=== PATIENT | male | born 1985 | race Hispanic/Latino ===

== ENCOUNTER 2016-12-11 21:34 | Emergency (ER) | payer OTHER ==
[~2016-12-11] VITALS: Ht 172.7 cm; Wt 70.2 kg
[~2016-12-11 21:34] MED LIST: ACYCLOVIR400 MG PO; BACTRIM DS1 TAB PO; HYDROXYZ HCL25 MG PO; NO HOME MEDS; ULTRAM50 MG OR
[2016-12-11 23:14] VITALS: BP 127/73
== END 2016-12-11 23:15 | disposition home or self-care (01) | DRG 607 ==
LOC: ED 21:34
DX: L50.9 Urticaria, unspecified (principal); L73.9 Follicular disorder, unspecified

== ENCOUNTER 2016-12-14 20:36 | Emergency (ER) | payer OTHER ==
[~2016-12-14] VITALS: Ht 172.7 cm; Wt 70.0 kg
[2016-12-14] MEDS ORDERED: AMOXICILLIN500 MG PO (23:23)
[2016-12-14 23:30] VITALS: BP 132/86
== END 2016-12-14 23:30 | disposition home or self-care (01) | DRG 153 ==
LOC: ED 20:36
DX: J02.9 Acute pharyngitis, unspecified (principal)

== ENCOUNTER 2017-03-24 16:35 | Emergency (ER) | payer SELFPAY ==
[~2017-03-24] VITALS: Ht 172.7 cm; Wt 75.0 kg
[~2017-03-24 16:35] MED LIST changes: +AMOXICILLIN500 MG PO
[2017-03-24 17:42] LABS: HEMATOCRIT 44.7 % (39.0-50.0); HEMOGLOBIN 15.2 g/dl (14.0-18.0); IMMATURE GRANULOCYTES 0.4 % (0.0-1.0); MEAN CORPUSCULAR HGB 29.2 pG CALC (26.0-32.0); NEUT# 7.3 thou/uL (1.82-7.42); RED BLOOD COUNT 5.2 mill/uL (4.70-6.10); RED CELL DISTRI WIDTH 13.4 % (11.5-15.5)
[2017-03-24 18:05] LABS: INFLUENZA A NONE DETECTED (NONE DETECT); INFLUENZA B NONE DETECTED (NONE DETECT)
[2017-03-24 18:15] LABS: ANION GAP 17 (6-22 (CALC)); BUN 13 mg/dL (9-20); BUN/CREATININE RATIO 15 (12-20 (CALC)); CALCIUM 10.6 mg/dL (8.4-10.2); CARBON DIOXIDE 23 mmol/l (22-30); CHLORIDE 104 mmol/l (95-108); CREATININE 0.9 mg/dL (0.7-1.3); GFR > 60 ML/MIN (>=60 (CALC)); GFR FOR AFR.AMER. > 60 ML/MIN (>=60 (CALC)); GLUCOSE 97 mg/dL (75-110); LIPASE 73 u/l (23-300); POTASSIUM 3.9 mmol/l (3.5-5.1); SODIUM 140 mmol/l (137-146)
[2017-03-24] MEDS ORDERED: ZOFRAN4 M1 PO (18:22)
[2017-03-24 18:30] VITALS: BP 120/74
== END 2017-03-24 18:35 | disposition home or self-care (01) | DRG 103 ==
LOC: ED 16:35
PROVIDERS: Family Medicine
DX: R51 Headache (principal); R10.11 Right upper quadrant pain; R10.13 Epigastric pain; R10.12 Left upper quadrant pain

== ENCOUNTER 2017-04-23 08:34 | Emergency (ER) | payer SELFPAY ==
[~2017-04-23] VITALS: Ht 172.7 cm; Wt 75.0 kg
[~2017-04-23 08:34] MED LIST changes: +ZOFRAN4 M1 PO
[2017-04-23 09:03] LABS: INFLUENZA A NONE DETECTED (NONE DETECT); INFLUENZA B POSITIVE (NONE DETECT)
[2017-04-23] MEDS ORDERED: TAM75CAP PO (09:11)
[2017-04-23] MEDS ORDERED: TORADOL PO (09:11)
[2017-04-23 09:29] VITALS: BP 125/77
== END 2017-04-23 09:29 | disposition home or self-care (01) | DRG 153 ==
LOC: ED 08:34
PROVIDERS: Emergency Medicine
DX: J11.1 Influenza due to unidentified influenza virus with other respiratory manifestations (principal)

== ENCOUNTER 2017-08-13 23:45 | Emergency (ER) | payer SELFPAY ==
[~2017-08-13] VITALS: Ht 172.7 cm; Wt 76.6 kg
[~2017-08-13 23:45] MED LIST changes: +TAM75CAP PO; +TORADOL PO
[2017-08-14 01:08] VITALS: BP 128/86
== END 2017-08-14 01:08 | disposition home or self-care (01) | DRG 866 ==
LOC: ED 23:45
DX: B34.9 Viral infection, unspecified (principal)

== ENCOUNTER 2018-03-08 11:10 | Emergency (ER) | payer OTHER ==
[~2018-03-08] VITALS: Ht 172.7 cm; Wt 74.4 kg
[2018-03-08] MEDS ORDERED: AUGMENTIN875TAB PO (12:10)
[2018-03-08 12:15] VITALS: BP 136/90
== END 2018-03-08 12:15 | disposition home or self-care (01) ==
LOC: ED 11:10
DX: J02.0 Streptococcal pharyngitis (principal); H92.03 Otalgia, bilateral

== ENCOUNTER 2018-05-12 23:09 | Emergency (ER) | payer OTHER ==
[~2018-05-12] VITALS: Ht 172.7 cm; Wt 72.0 kg
[~2018-05-12 23:09] MED LIST changes: +AUGMENTIN875TAB PO
[2018-05-13 00:04] LABS: HEMATOCRIT 48.6 % (39.0-50.0); HEMOGLOBIN 15.7 g/dl (14.0-18.0); IMMATURE GRANULOCYTES 0.3 % (0.0-5.0); MEAN CELL VOLUME 87.6 fL CALC (80.0-100.0); MEAN CORPUSCULAR HGB 28.3 pG CALC (26.0-32.0); MEAN CORPUSCULAR HGB CONC 32.3 g/L CALC (32.0-36.0); NEUT# 10.43 thou/uL (1.82-7.42); RED BLOOD COUNT 5.55 mill/uL (4.70-6.10); RED CELL DISTRI WIDTH 13.5 % (11.5-15.5)
[2018-05-13 00:06] LABS: URINE BILIRUBIN - DIPSTICK NEGATIVE (NEGATIVE); URINE BLOOD DIPSTICK NEGATIVE (NEGATIVE); URINE COLOR YELLOW; URINE GLUCOSE - DIPSTICK NEGATIVE (NEGATIVE); URINE KETONE TRACE mg/dL (NEGATIVE); URINE LEUK ESTERASE NEGATIVE (NEGATIVE); URINE NITRITE - DIPSTICK NEGATIVE (Negative); URINE PH 6.5 (4.5-8.0); URINE PROTEIN - DIPSTICK NEGATIVE (NEG-TRACE)
[2018-05-13 00:18] LABS: ALBUMIN 4.8 g/dL (3.2-5.0); ALKALINE PHOSPHATASE 78 u/l (38-126); AMYLASE 67 u/l (30-110); ANION GAP 15 (6-22 (CALC)); BUN 16 mg/dL (9-20); BUN/CREATININE RATIO 17 (12-20 (CALC)); CARBON DIOXIDE 25 mmol/l (22-30); CHLORIDE 106 mmol/l (95-108); GFR > 60 ML/MIN (>=60 (CALC)); GFR FOR AFR.AMER. > 60 ML/MIN (>=60 (CALC)); LIPASE 142 u/l (23-300); POTASSIUM 3.8 mmol/l (3.5-5.1); SGOT/AST 31 u/l (17-59); SODIUM 142 mmol/l (137-146); TOTAL PROTEIN 8.4 g/dL (6.3-8.2)
[2018-05-13] MEDS ORDERED: PROTONIX40 MG PO (01:47)
[2018-05-13 03:08] VITALS: BP 108/77
== END 2018-05-13 03:21 | disposition home or self-care (01) ==
LOC: ED 23:09
PROVIDERS: Emergency Medicine
DX: R10.13 Epigastric pain (principal)
CPT/HCPCS: Q9967; S0164

== ENCOUNTER 2018-07-08 19:29 | Emergency (ER) | payer OTHER ==
[~2018-07-08] VITALS: Ht 172.7 cm; Wt 71.0 kg
[~2018-07-08 19:29] MED LIST changes: +PROTONIX40 MG PO
[2018-07-08] MEDS ORDERED: AUGMENTIN875TAB PO (19:48)
[2018-07-08] MEDS ORDERED: PREDNISONE20 MG PO (19:53)
[2018-07-08 20:09] VITALS: BP 121/67
== END 2018-07-08 20:09 | disposition home or self-care (01) ==
LOC: ED 19:29
DX: J32.9 Chronic sinusitis, unspecified (principal); R09.81 Nasal congestion

== ENCOUNTER 2018-07-23 20:49 | Emergency (ER) | payer SELFPAY ==
[~2018-07-23] VITALS: Ht 172.7 cm; Wt 80.0 kg
[~2018-07-23 20:49] MED LIST changes: +PREDNISONE20 MG PO
[2018-07-23] MEDS ORDERED: CEPHALEXIN500 M1 PO (21:56)
[2018-07-23 22:30] VITALS: BP 142/72
== END 2018-07-23 22:31 | disposition home or self-care (01) | DRG 605 ==
LOC: ED 20:49
DX: S61.231A Puncture wound without foreign body of left index finger without damage to nail, initial encounter (principal); W60.XXXA Contact with nonvenomous plant thorns and spines and sharp leaves, initial encounter; Y93.H2 Activity, gardening and landscaping; Y99.0 Civilian activity done for income or pay

== ENCOUNTER 2019-03-20 | Emergency (ER) | payer MEDICAID ==
[~2019-03-20] MED LIST changes: +CEPHALEXIN500 M1 PO; +TRAMADOL HYDROC50 MG PO
[2019-03-20 21:10] LABS: HEMATOCRIT 41.4 % (39.0-50.0); HEMOGLOBIN 14.1 g/dl (14.0-18.0); IMMATURE GRANULOCYTES 0.4 % (0.0-5.0); MEAN CELL VOLUME 84.1 fL CALC (80.0-100.0); MEAN CORPUSCULAR HGB 28.7 pG CALC (26.0-32.0); MEAN CORPUSCULAR HGB CONC 34.1 g/L CALC (32.0-36.0); NEUT# 9.37 thou/uL (1.82-7.42); RED BLOOD COUNT 4.92 mill/uL (4.70-6.10); RED CELL DISTRI WIDTH 13.1 % (11.5-15.5)
[2019-03-20] MEDS ORDERED: CLARITHROMYC500 MG PO (21:39)
== END 2019-03-20 22:00 | disposition home or self-care (01) | DRG 203 ==
PROVIDERS: Family Medicine
DX: J40 Bronchitis, not specified as acute or chronic (principal)

== ENCOUNTER 2019-08-02 13:24 | Emergency (ER) | payer MEDICAID ==
[~2019-08-02 13:24] MED LIST changes: +CLARITHROMYC500 MG PO
[2019-08-02] MEDS ORDERED: AMOXICILLIN500 MG PO (15:27)
[2019-08-02 15:30] VITALS: BP 126/76
== END 2019-08-02 15:30 | disposition home or self-care (01) | DRG 153 ==
LOC: ED 13:24
DX: J02.9 Acute pharyngitis, unspecified (principal); Z20.828 Contact with and (suspected) exposure to other viral communicable diseases

== ENCOUNTER 2019-09-08 19:55 | Emergency (ER) | payer MEDICAID ==
[~2019-09-08] VITALS: Ht 172.7 cm; Wt 72.0 kg
[2019-09-08 20:09] VITALS: BP 144/91
== END 2019-09-08 21:49 | disposition home or self-care (01) ==
LOC: ED 19:55
DX: R52 Pain, unspecified (principal); R05 Cough; Z20.828 Contact with and (suspected) exposure to other viral communicable diseases

== ENCOUNTER 2019-12-12 21:28 | Emergency (ER) | payer MEDICAID ==
[~2019-12-12] VITALS: Ht 172.7 cm; Wt 78.0 kg
[2019-12-12 21:49] LABS: HEMATOCRIT 38.9 % (39.0-50.0); HEMOGLOBIN 13.1 g/dl (14.0-18.0); IMMATURE GRANULOCYTES 1.1 % (0.0-5.0); MEAN CELL VOLUME 84.9 fL CALC (80.0-100.0); MEAN CORPUSCULAR HGB 28.6 pG CALC (26.0-32.0); MEAN CORPUSCULAR HGB CONC 33.7 g/dL CAL (32.0-36.0); RED BLOOD COUNT 4.58 mill/uL (4.70-6.10); RED CELL DISTRI WIDTH 13.3 % (11.5-15.5)
[2019-12-12 21:59] LABS: ALBUMIN 4.3 g/dL (3.2-5.0); ALKALINE PHOSPHATASE 71 u/l (38-126); ANION GAP 12 (6-22 (CALC)); BILIRUBIN, TOTAL 0.3 mg/dL (0.0-1.4); BUN 14 mg/dL (9-20); BUN/CREATININE RATIO 11 (12-20 (CALC)); CARBON DIOXIDE 25 mmol/l (22-30); CHLORIDE 106 mmol/l (95-108); CREATININE 1.3 mg/dL (0.7-1.3); GFR > 60 ML/MIN (>=60 (CALC)); GFR FOR AFR.AMER. > 60 ML/MIN (>=60 (CALC)); POTASSIUM 3.4 mmol/l (3.5-5.1); SGOT/AST 30 u/l (17-59); SODIUM 139 mmol/l (137-146); TOTAL PROTEIN 7.6 g/dL (6.3-8.2)
[2019-12-12 22:08] LABS: D-DIMER 0.19 mg/L (0.19-0.60); MYOGLOBIN 27 ng/mL (0 - 121)
[2019-12-12 22:11] LABS: ACT PARTIAL THROMBO TIME 23.9 SECONDS (20.0-32.5); PROTHROMBIN TIME 9.9 SECONDS (9.0-12.5)
[2019-12-12] MEDS ORDERED: TORADOL PO (22:26)
[2019-12-12 22:44] VITALS: BP 113/71
== END 2019-12-12 22:45 | disposition home or self-care (01) ==
LOC: ED 21:28
PROVIDERS: Family Medicine
DX: R07.89 Other chest pain (principal)

== ENCOUNTER 2020-03-09 19:12 | Emergency (ER) | payer MEDICAID ==
[~2020-03-09] VITALS: Ht 172.7 cm; Wt 81.8 kg
[2020-03-09 19:40] LABS: HEMATOCRIT 42.8 % (39.0-50.0); HEMOGLOBIN 14.6 g/dl (14.0-18.0); IMMATURE GRANULOCYTES 0.2 % (0.0-5.0); MEAN CELL VOLUME 85.3 fL CALC (80.0-100.0); MEAN CORPUSCULAR HGB 29.1 pG CALC (26.0-32.0); MEAN CORPUSCULAR HGB CONC 34.1 g/dL CAL (32.0-36.0); NEUT# 6.05 thou/uL (1.82-7.42); RED BLOOD COUNT 5.02 mill/uL (4.70-6.10); RED CELL DISTRI WIDTH 13.4 % (11.5-15.5)
[2020-03-09 19:58] LABS: ALBUMIN 4.5 g/dL (3.2-5.0); ALKALINE PHOSPHATASE 73 u/l (38-126); AMYLASE 75 u/l (30-110); ANION GAP 14 (6-22 (CALC)); BILIRUBIN, TOTAL 0.4 mg/dL (0.0-1.4); BUN 15 mg/dL (9-20); BUN/CREATININE RATIO 16 (12-20 (CALC)); CARBON DIOXIDE 24 mmol/l (22-30); CHLORIDE 107 mmol/l (95-108); GFR > 60 ML/MIN (>=60 (CALC)); GFR FOR AFR.AMER. > 60 ML/MIN (>=60 (CALC)); LIPASE 131 u/l (23-300); POTASSIUM 3.5 mmol/l (3.5-5.1); SGOT/AST 29 u/l (17-59); SODIUM 142 mmol/l (137-146); TOTAL PROTEIN 7.8 g/dL (6.3-8.2)
[2020-03-09 22:34] LABS: URINE BILIRUBIN - DIPSTICK NEGATIVE (NEGATIVE); URINE BLOOD DIPSTICK TRACE-INTACT (NEGATIVE); URINE COLOR YELLOW; URINE GLUCOSE - DIPSTICK NEGATIVE (NEGATIVE); URINE KETONE NEGATIVE (NEGATIVE); URINE LEUK ESTERASE NEGATIVE (NEGATIVE); URINE NITRITE - DIPSTICK NEGATIVE (Negative); URINE PH 5.5 (4.5-8.0); URINE PROTEIN - DIPSTICK NEGATIVE (NEG-TRACE); URINE SPECIFIC GRAVITY >=1.030; URINE UROBILINOGEN - DIPSTICK 0.2 E.U./dL (0.2)
[2020-03-09 23:55] VITALS: BP 107/75
== END 2020-03-09 23:58 | disposition home or self-care (01) ==
LOC: ED 19:12
DX: Z82.49 Family history of ischemic heart disease and other diseases of the circulatory system (principal); R07.89 Other chest pain

== ENCOUNTER 2020-07-01 21:48 | Emergency (ER) | payer MEDICAID ==
[2020-07-01 23:30] LABS: HEMATOCRIT 41.3 % (39.0-50.0); HEMOGLOBIN 13.5 g/dl (14.0-18.0); IMMATURE GRANULOCYTES 0.5 % (0.0-5.0); MEAN CELL VOLUME 85.7 fL CALC (80.0-100.0); MEAN CORPUSCULAR HGB CONC 32.7 g/dL CAL (32.0-36.0); NEUT# 12.27 thou/uL (1.82-7.42); RED BLOOD COUNT 4.82 mill/uL (4.70-6.10); RED CELL DISTRI WIDTH 13.2 % (11.5-15.5)
[2020-07-01 23:49] LABS: ALBUMIN 4.7 g/dL (3.2-5.0); ALKALINE PHOSPHATASE 69 u/l (38-126); ANION GAP 14 (6-22 (CALC)); BUN 15 mg/dL (9-20); BUN/CREATININE RATIO 19 (12-20 (CALC)); CARBON DIOXIDE 24 mmol/l (22-30); CHLORIDE 102 mmol/l (95-108); CREATININE 0.8 mg/dL (0.7-1.3); GFR > 60 ML/MIN (>=60 (CALC)); GFR FOR AFR.AMER. > 60 ML/MIN (>=60 (CALC)); LIPASE 46 u/l (23-300); POTASSIUM 3.8 mmol/l (3.5-5.1); SGOT/AST 27 u/l (17-59); SODIUM 136 mmol/l (137-146); TOTAL PROTEIN 8.4 g/dL (6.3-8.2)
[2020-07-02 00:03] LABS: BILIRUBIN, TOTAL 0.6 mg/dL (0.0-1.4)
[2020-07-02] MEDS ORDERED: PROTONIX40 MG PO (00:34)
[2020-07-02 01:42] VITALS: BP 112/68
== END 2020-07-02 01:52 | disposition home or self-care (01) ==
LOC: ED 21:48
PROVIDERS: Emergency Medicine
DX: K21.9 Gastro-esophageal reflux disease without esophagitis (principal)

== ENCOUNTER 2020-07-08 19:20 | Emergency (ER) | payer MEDICAID ==
[2020-07-08 20:52] LABS: HEMATOCRIT 42.2 % (39.0-50.0); IMMATURE GRANULOCYTES 0.6 % (0.0-5.0); MEAN CELL VOLUME 86.3 fL CALC (80.0-100.0); MEAN CORPUSCULAR HGB 28.6 pG CALC (26.0-32.0); MEAN CORPUSCULAR HGB CONC 33.2 g/dL CAL (32.0-36.0); NEUT# 7.06 thou/uL (1.82-7.42); RED BLOOD COUNT 4.89 mill/uL (4.70-6.10); RED CELL DISTRI WIDTH 13.7 % (11.5-15.5)
[2020-07-08 21:05] LABS: ALBUMIN 4.2 g/dL (3.2-5.0); ALKALINE PHOSPHATASE 69 u/l (38-126); ANION GAP 10 (6-22 (CALC)); BILIRUBIN, TOTAL 0.7 mg/dL (0.0-1.4); BUN 17 mg/dL (9-20); BUN/CREATININE RATIO 16 (12-20 (CALC)); CARBON DIOXIDE 28 mmol/l (22-30); CHLORIDE 103 mmol/l (95-108); GFR > 60 ML/MIN (>=60 (CALC)); GFR FOR AFR.AMER. > 60 ML/MIN (>=60 (CALC)); POTASSIUM 3.8 mmol/l (3.5-5.1); SGOT/AST 22 u/l (17-59); SODIUM 136 mmol/l (137-146); TOTAL PROTEIN 7.2 g/dL (6.3-8.2)
[2020-07-08] MEDS ORDERED: VOLTAREN75 MG PO (22:05)
[2020-07-08 22:13] VITALS: BP 123/79
== END 2020-07-08 22:25 | disposition home or self-care (01) ==
LOC: ED 19:20
PROVIDERS: Family Medicine
DX: B34.9 Viral infection, unspecified (principal); Z20.822 Contact with and (suspected) exposure to COVID-19

== ENCOUNTER 2020-08-30 22:14 | Emergency (ER) | payer MEDICAID ==
[~2020-08-30] VITALS: Ht 172.7 cm; Wt 77.0 kg
[~2020-08-30 22:14] MED LIST changes: +VOLTAREN75 MG PO
[2020-08-30 23:44] LABS: HEMATOCRIT 43.6 % (39.0-50.0); HEMOGLOBIN 14.5 g/dl (14.0-18.0); IMMATURE GRANULOCYTES 0.1 % (0.0-5.0); MEAN CELL VOLUME 84.8 fL CALC (80.0-100.0); MEAN CORPUSCULAR HGB 28.2 pG CALC (26.0-32.0); MEAN CORPUSCULAR HGB CONC 33.3 g/dL CAL (32.0-36.0); NEUT# 5.2 thou/uL (1.82-7.42); RED BLOOD COUNT 5.14 mill/uL (4.70-6.10); RED CELL DISTRI WIDTH 13.2 % (11.5-15.5)
[2020-08-30 23:58] LABS: URINE BILIRUBIN - DIPSTICK NEGATIVE (NEGATIVE); URINE BLOOD DIPSTICK TRACE-INTACT (NEGATIVE); URINE COLOR YELLOW; URINE GLUCOSE - DIPSTICK NEGATIVE (NEGATIVE); URINE KETONE NEGATIVE (NEGATIVE); URINE LEUK ESTERASE NEGATIVE (NEGATIVE); URINE PH 6.5 (4.5-8.0); URINE PROTEIN - DIPSTICK NEGATIVE (NEG-TRACE); URINE SPECIFIC GRAVITY 1.025; URINE UROBILINOGEN - DIPSTICK 0.2 E.U./dL (0.2)
[2020-08-30 23:59] LABS: ALBUMIN 4.1 g/dL (3.2-5.0); ALKALINE PHOSPHATASE 71 u/l (38-126); ANION GAP 14 (6-22 (CALC)); BUN 14 mg/dL (9-20); BUN/CREATININE RATIO 13 (12-20 (CALC)); CARBON DIOXIDE 24 mmol/l (22-30); CHLORIDE 107 mmol/l (95-108); CREATININE 1.1 mg/dL (0.7-1.3); GFR > 60 ML/MIN (>=60 (CALC)); GFR FOR AFR.AMER. > 60 ML/MIN (>=60 (CALC)); LIPASE 146 u/l (23-300); POTASSIUM 3.4 mmol/l (3.5-5.1); SGOT/AST 32 u/l (17-59); SODIUM 141 mmol/l (137-146); TOTAL PROTEIN 7.7 g/dL (6.3-8.2)
[2020-08-31] LABS: BILIRUBIN, TOTAL 0.3 mg/dL (0.0-1.4)
[2020-08-31 00:05] LABS: URINE NITRITE - DIPSTICK NEGATIVE (Negative)
[2020-08-31 04:45] VITALS: BP 111/67
== END 2020-08-31 04:55 | disposition home or self-care (01) ==
LOC: ED 22:14
PROVIDERS: Emergency Medicine
DX: R07.89 Other chest pain (principal)

== ENCOUNTER 2020-09-07 13:57 | Emergency (ER) | payer MEDICAID ==
[~2020-09-07] VITALS: Ht 172.7 cm; Wt 77.2 kg
[2020-09-07 14:47] LABS: HEMATOCRIT 44.5 % (39.0-50.0); HEMOGLOBIN 14.9 g/dl (14.0-18.0); IMMATURE GRANULOCYTES 0.1 % (0.0-5.0); MEAN CELL VOLUME 84.6 fL CALC (80.0-100.0); MEAN CORPUSCULAR HGB 28.3 pG CALC (26.0-32.0); MEAN CORPUSCULAR HGB CONC 33.5 g/dL CAL (32.0-36.0); NEUT# 4.85 thou/uL (1.82-7.42); RED BLOOD COUNT 5.26 mill/uL (4.70-6.10); RED CELL DISTRI WIDTH 13.4 % (11.5-15.5)
[2020-09-07 15:03] LABS: ALBUMIN 4.4 g/dL (3.2-5.0); ALKALINE PHOSPHATASE 76 u/l (38-126); ANION GAP 13 (6-22 (CALC)); BUN 14 mg/dL (9-20); BUN/CREATININE RATIO 17 (12-20 (CALC)); CARBON DIOXIDE 24 mmol/l (22-30); CHLORIDE 105 mmol/l (95-108); CREATININE 0.9 mg/dL (0.7-1.3); ETHYL ALCOHOL 0 mg/dl (0-30); GFR > 60 ML/MIN (>=60 (CALC)); GFR FOR AFR.AMER. > 60 ML/MIN (>=60 (CALC)); LIPASE 114 u/l (23-300); POTASSIUM 3.3 mmol/l (3.5-5.1); SGOT/AST 30 u/l (17-59); SODIUM 139 mmol/l (137-146); TOTAL PROTEIN 8.2 g/dL (6.3-8.2)
[2020-09-07 15:04] LABS: BILIRUBIN, TOTAL 0.6 mg/dL (0.0-1.4)
[2020-09-07 15:45] LABS: URINE BILIRUBIN - DIPSTICK NEGATIVE (NEGATIVE); URINE BLOOD DIPSTICK NEGATIVE (NEGATIVE); URINE COLOR YELLOW; URINE GLUCOSE - DIPSTICK NEGATIVE (NEGATIVE); URINE KETONE NEGATIVE (NEGATIVE); URINE LEUK ESTERASE NEGATIVE (NEGATIVE); URINE PROTEIN - DIPSTICK NEGATIVE (NEG-TRACE); URINE SPECIFIC GRAVITY 1.025; URINE UROBILINOGEN - DIPSTICK 0.2 E.U./dL (0.2)
[2020-09-07 15:46] LABS: URINE NITRITE - DIPSTICK NEGATIVE (Negative)
[2020-09-07] MEDS ORDERED: IBUPROFEN600 MG PO (17:48)
[2020-09-07 18:09] VITALS: BP 111/80
== END 2020-09-07 18:16 | disposition home or self-care (01) | DRG 313 ==
LOC: ED 13:57
DX: R07.89 Other chest pain (principal); Z82.49 Family history of ischemic heart disease and other diseases of the circulatory system

== ENCOUNTER 2020-10-04 17:49 | Emergency (ER) | payer MEDICAID ==
[~2020-10-04] VITALS: Ht 172.7 cm; Wt 77.0 kg
[~2020-10-04 17:49] MED LIST changes: +IBUPROFEN600 MG PO
[2020-10-04] MEDS ORDERED: VOLTAREN75 MG PO (22:50)
[2020-10-04 23:00] VITALS: BP 127/70
== END 2020-10-04 23:03 | disposition home or self-care (01) ==
LOC: ED 17:49
DX: R07.89 Other chest pain (principal); M25.512 Pain in left shoulder

== ENCOUNTER 2020-10-18 18:44 | Emergency (ER) | payer MEDICAID ==
[2020-10-18 20:06] VITALS: BP 124/77
== END 2020-10-18 20:07 | disposition home or self-care (01) ==
LOC: ED 18:44
DX: B34.9 Viral infection, unspecified (principal); Z20.822 Contact with and (suspected) exposure to COVID-19

== ENCOUNTER → 2020-11-06 | Outpatient (REF) | payer MEDICAID ==
[~2020-11-06] MED LIST changes: +NAPROXEN500 MG PO
== END | disposition home or self-care (01) ==
LOC: LAB 08:24
PROVIDERS: ATTEND Internal Medicine
DX: R01.1 Cardiac murmur, unspecified (principal); R07.9 Chest pain, unspecified

== ENCOUNTER 2020-11-08 22:15 | Emergency (ER) | payer MEDICAID ==
[~2020-11-08] VITALS: Ht 172.7 cm; Wt 76.0 kg
[~2020-11-08 22:15] MED LIST changes: -NAPROXEN500 MG PO
[2020-11-08 22:53] LABS: HEMATOCRIT 45.4 % (39.0-50.0); HEMOGLOBIN 15.3 g/dl (14.0-18.0); IMMATURE GRANULOCYTES 0.2 % (0.0-5.0); MEAN CELL VOLUME 86.3 fL CALC (80.0-100.0); MEAN CORPUSCULAR HGB 29.1 pG CALC (26.0-32.0); MEAN CORPUSCULAR HGB CONC 33.7 g/dL CAL (32.0-36.0); NEUT# 6.15 thou/uL (1.82-7.42); RED BLOOD COUNT 5.26 mill/uL (4.70-6.10)
[2020-11-08 23:01] LABS: ALBUMIN 4.3 g/dL (3.2-5.0); ALKALINE PHOSPHATASE 76 u/l (38-126); ANION GAP 13 (6-22 (CALC)); BILIRUBIN, TOTAL 0.6 mg/dL (0.0-1.4); BUN 14 mg/dL (9-20); BUN/CREATININE RATIO 16 (12-20 (CALC)); CARBON DIOXIDE 24 mmol/l (22-30); CHLORIDE 105 mmol/l (95-108); CREATININE 0.9 mg/dL (0.7-1.3); GFR > 60 ML/MIN (>=60 (CALC)); GFR FOR AFR.AMER. > 60 ML/MIN (>=60 (CALC)); POTASSIUM 3.3 mmol/l (3.5-5.1); SGOT/AST 30 u/l (17-59); SODIUM 139 mmol/l (137-146); TOTAL PROTEIN 7.8 g/dL (6.3-8.2)
[2020-11-08 23:19] LABS: MYOGLOBIN 20 ng/mL (0 - 121)
[2020-11-08] MEDS ORDERED: NAPROXEN500 MG PO (23:23)
[2020-11-08 23:30] VITALS: BP 116/73
== END 2020-11-08 23:30 | disposition home or self-care (01) ==
LOC: ED 22:15
PROVIDERS: Emergency Medicine
DX: R07.89 Other chest pain (principal)

== ENCOUNTER 2020-11-26 21:06 | Emergency (ER) | payer MEDICAID ==
[~2020-11-26] VITALS: Ht 172.7 cm; Wt 80.0 kg
[~2020-11-26 21:06] MED LIST changes: +NAPROXEN500 MG PO
[2020-11-26 22:14] LABS: HEMATOCRIT 40.7 % (39.0-50.0); HEMOGLOBIN 13.6 g/dl (14.0-18.0); IMMATURE GRANULOCYTES 0.1 % (0.0-5.0); MEAN CELL VOLUME 87.2 fL CALC (80.0-100.0); MEAN CORPUSCULAR HGB 29.1 pG CALC (26.0-32.0); MEAN CORPUSCULAR HGB CONC 33.4 g/dL CAL (32.0-36.0); NEUT# 6.33 thou/uL (1.82-7.42); RED BLOOD COUNT 4.67 mill/uL (4.70-6.10)
[2020-11-26 22:29] LABS: ALBUMIN 4.1 g/dL (3.2-5.0); ALKALINE PHOSPHATASE 69 u/l (38-126); ANION GAP 10 (6-22 (CALC)); BILIRUBIN, TOTAL 0.5 mg/dL (0.0-1.4); BUN 12 mg/dL (9-20); BUN/CREATININE RATIO 12 (12-20 (CALC)); CARBON DIOXIDE 22 mmol/l (22-30); CHLORIDE 109 mmol/l (95-108); GFR > 60 ML/MIN (>=60 (CALC)); GFR FOR AFR.AMER. > 60 ML/MIN (>=60 (CALC)); POTASSIUM 3.2 mmol/l (3.5-5.1); SGOT/AST 26 u/l (17-59); SODIUM 138 mmol/l (137-146); TOTAL PROTEIN 6.9 g/dL (6.3-8.2)
[2020-11-26 22:40] LABS: MYOGLOBIN 29 ng/mL (0 - 121)
[2020-11-26] MEDS ORDERED: TORADOL PO (22:55)
[2020-11-26 23:15] VITALS: BP 122/65
== END 2020-11-26 23:30 | disposition home or self-care (01) ==
LOC: ED 21:06
PROVIDERS: Family Medicine
DX: R07.89 Other chest pain (principal)

== ENCOUNTER 2020-12-21 04:41 | Emergency (ER) | payer MEDICAID ==
[~2020-12-21] VITALS: Ht 172.7 cm; Wt 75.0 kg
[2020-12-21 05:39] LABS: IMMATURE GRANULOCYTES 0.2 % (0.0-5.0); MEAN CELL VOLUME 85.2 fL CALC (80.0-100.0); MEAN CORPUSCULAR HGB 28.4 pG CALC (26.0-32.0); MEAN CORPUSCULAR HGB CONC 33.3 g/dL CAL (32.0-36.0); NEUT# 5.91 thou/uL (1.82-7.42); RED BLOOD COUNT 5.28 mill/uL (4.70-6.10); RED CELL DISTRI WIDTH 13.1 % (11.5-15.5)
[2020-12-21 05:42] LABS: ALBUMIN 4.4 g/dL (3.2-5.0); ALKALINE PHOSPHATASE 80 u/l (38-126); ANION GAP 14 (6-22 (CALC)); BILIRUBIN, TOTAL 0.7 mg/dL (0.0-1.4); BUN 14 mg/dL (9-20); BUN/CREATININE RATIO 17 (12-20 (CALC)); CARBON DIOXIDE 23 mmol/l (22-30); CHLORIDE 107 mmol/l (95-108); CREATININE 0.9 mg/dL (0.7-1.3); GFR > 60 ML/MIN (>=60 (CALC)); GFR FOR AFR.AMER. > 60 ML/MIN (>=60 (CALC)); LIPASE 81 u/l (23-300); SGOT/AST 24 u/l (17-59); SODIUM 140 mmol/l (137-146); TOTAL PROTEIN 7.8 g/dL (6.3-8.2)
[2020-12-21 05:43] LABS: POTASSIUM 3.9 mmol/l (3.5-5.1)
[2020-12-21 05:54] LABS: URINE BILIRUBIN - DIPSTICK NEGATIVE (NEGATIVE); URINE BLOOD DIPSTICK NEGATIVE (NEGATIVE); URINE COLOR YELLOW; URINE GLUCOSE - DIPSTICK NEGATIVE (NEGATIVE); URINE KETONE NEGATIVE (NEGATIVE); URINE LEUK ESTERASE NEGATIVE (NEGATIVE); URINE PROTEIN - DIPSTICK NEGATIVE (NEG-TRACE); URINE SPECIFIC GRAVITY 1.025; URINE UROBILINOGEN - DIPSTICK 0.2 E.U./dL (0.2)
[2020-12-21 06:00] LABS: URINE NITRITE - DIPSTICK NEGATIVE (Negative)
[2020-12-21] MEDS ORDERED: PROTONIX40 MG PO (06:37)
[2020-12-21] MEDS ORDERED: ZOFRAN4 MG/TAB PO (06:37)
[2020-12-21 06:49] VITALS: BP 138/90
== END 2020-12-21 06:56 | disposition home or self-care (01) ==
LOC: ED 04:41
DX: R10.13 Epigastric pain (principal); Z90.49 Acquired absence of other specified parts of digestive tract; Z20.822 Contact with and (suspected) exposure to COVID-19
CPT/HCPCS: S0164

== ENCOUNTER 2021-03-06 10:03 | Emergency (ER) | payer OTHER ==
[~2021-03-06] VITALS: Ht 172.7 cm; Wt 77.0 kg
[~2021-03-06 10:03] MED LIST changes: +ZOFRAN4 MG/TAB PO
[2021-03-06] MEDS ORDERED: ZPAK PO (10:50)
[2021-03-06 11:00] VITALS: BP 134/80
== END 2021-03-06 11:15 | disposition home or self-care (01) ==
LOC: ED 10:03
DX: U07.1 COVID-19 (principal)

== ENCOUNTER 2021-04-10 18:05 | Emergency (ER) | payer OTHER ==
[~2021-04-10] VITALS: Ht 172.7 cm; Wt 76.0 kg
[~2021-04-10 18:05] MED LIST changes: +ZPAK PO
[2021-04-10 19:44] LABS: MEAN CELL VOLUME 86.9 fL CALC (80.0-100.0); MEAN CORPUSCULAR HGB 29.7 pG CALC (26.0-32.0); MEAN CORPUSCULAR HGB CONC 34.1 g/dL CAL (32.0-36.0); NEUT# 5.79 thou/uL (1.82-7.42); RED BLOOD COUNT 4.72 mill/uL (4.70-6.10); RED CELL DISTRI WIDTH 13.1 % (11.5-15.5)
[2021-04-10 19:58] LABS: ALBUMIN 4.1 g/dL (3.2-5.0); ALKALINE PHOSPHATASE 88 u/l (38-126); ANION GAP 13 (6-22 (CALC)); BILIRUBIN, TOTAL 0.5 mg/dL (0.0-1.4); BUN 13 mg/dL (9-20); BUN/CREATININE RATIO 15 (12-20 (CALC)); CARBON DIOXIDE 24 mmol/l (22-30); CHLORIDE 106 mmol/l (95-108); CREATININE 0.9 mg/dL (0.7-1.3); GFR > 60 ML/MIN (>=60 (CALC)); GFR FOR AFR.AMER. > 60 ML/MIN (>=60 (CALC)); POTASSIUM 3.7 mmol/l (3.5-5.1); SGOT/AST 35 u/l (17-59); SODIUM 139 mmol/l (137-146); TOTAL PROTEIN 7.6 g/dL (6.3-8.2)
[2021-04-10] MEDS ORDERED: KEFLEX500 MG PO (20:13)
[2021-04-10] MEDS ORDERED: NAPROXEN500 MG PO (20:13)
[2021-04-10 20:22] VITALS: BP 136/78
== END 2021-04-10 20:28 | disposition home or self-care (01) ==
LOC: ED 18:05
PROVIDERS: Emergency Medicine
DX: J06.9 Acute upper respiratory infection, unspecified (principal); Z20.822 Contact with and (suspected) exposure to COVID-19

== ENCOUNTER 2022-01-03 14:03 | Emergency (ER) | payer BC, OTHER ==
[~2022-01-03] VITALS: Ht 172.7 cm; Wt 82.0 kg
[~2022-01-03 14:03] MED LIST changes: +KEFLEX500 MG PO
[2022-01-03 14:19] VITALS: BP 117/83
[2022-01-03 14:30] VITALS: BP 112/73
[2022-01-03 14:46] LABS: HEMATOCRIT 41.2 % (39.0-50.0); IMMATURE GRANULOCYTES 0.1 % (0.0-5.0); MEAN CELL VOLUME 85.7 fL CALC (80.0-100.0); MEAN CORPUSCULAR HGB 29.1 pG CALC (26.0-32.0); NEUT# 5.46 thou/uL (1.82-7.42); RED BLOOD COUNT 4.81 mill/uL (4.70-6.10); RED CELL DISTRI WIDTH 13.1 % (11.5-15.5)
[2022-01-03 14:55] LABS: ALBUMIN 4.4 g/dL (3.2-5.0); ALKALINE PHOSPHATASE 59 u/l (38-126); ANION GAP 12 (6-22 (CALC)); BILIRUBIN, TOTAL 0.5 mg/dL (0.0-1.4); BUN 14 mg/dL (9-20); BUN/CREATININE RATIO 13 (12-20 (CALC)); CARBON DIOXIDE 24 mmol/l (22-30); CHLORIDE 111 mmol/l (95-108); CREATININE 1.1 mg/dL (0.7-1.3); GFR FOR AFR.AMER. > 60 ML/MIN (>=60 (CALC)); GFR OTHER RACES > 60 ML/MIN (>=60 (CALC)); POTASSIUM 4.1 mmol/l (3.5-5.1); SGOT/AST 30 u/l (17-59); SODIUM 142 mmol/l (137-146); TOTAL PROTEIN 7.6 g/dL (6.3-8.2)
[2022-01-03] MEDS ORDERED: GABAPENTIN100 MG PO (15:00)
[2022-01-03 15:01] VITALS: BP 116/77
[2022-01-03] MEDS ORDERED: ROSUVASTATIN CA40 MG (15:01)
[2022-01-03] MEDS ORDERED: METHOCARBAMOL500 MG PO (16:16)
[2022-01-03] MEDS ORDERED: NAPROXEN500 MG PO (16:16)
[2022-01-03 16:20] VITALS: BP 112/74
[2022-01-03 16:30] VITALS: BP 110/77
[2022-01-03 16:56] VITALS: BP 110/77
== END 2022-01-03 16:56 | disposition home or self-care (01) | DRG 206 ==
LOC: ED 14:03
PROVIDERS: Nurse Practitioner
DX: M94.0 Chondrocostal junction syndrome [Tietze] (principal)

== ENCOUNTER 2022-01-29 19:58 | Emergency (ER) | payer BC, OTHER ==
[~2022-01-29] VITALS: Ht 172.7 cm; Wt 77.0 kg
[2022-01-29] VITALS (7 sets, daily range): BP systolic 112–174; BP diastolic 67–105
[~2022-01-29 19:58] MED LIST changes: +GABAPENTIN100 MG PO; +METHOCARBAMOL500 MG PO; +ROSUVASTATIN CA40 MG
[2022-01-29] MEDS ORDERED: FENOFIBRATE145 MG PO (20:19)
[2022-01-29 20:47] LABS: HEMATOCRIT 40.7 % (39.0-50.0); HEMOGLOBIN 13.9 g/dl (14.0-18.0); MEAN CELL VOLUME 85.1 fL CALC (80.0-100.0); MEAN CORPUSCULAR HGB 29.1 pG CALC (26.0-32.0); MEAN CORPUSCULAR HGB CONC 34.2 g/dL CAL (32.0-36.0); NEUT# 4.6 thou/uL (1.82-7.42); RED BLOOD COUNT 4.78 mill/uL (4.70-6.10); RED CELL DISTRI WIDTH 13.2 % (11.5-15.5)
[2022-01-29 20:59] LABS: ALBUMIN 4.3 g/dL (3.2-5.0); ALKALINE PHOSPHATASE 60 u/l (38-126); ANION GAP 13 (6-22 (CALC)); BUN 14 mg/dL (9-20); BUN/CREATININE RATIO 12 (12-20 (CALC)); CARBON DIOXIDE 22 mmol/l (22-30); CHLORIDE 109 mmol/l (95-108); CPK 214 u/l (52-200); CREATININE 1.1 mg/dL (0.7-1.3); GFR FOR AFR.AMER. > 60 ML/MIN (>=60 (CALC)); GFR OTHER RACES > 60 ML/MIN (>=60 (CALC)); POTASSIUM 3.5 mmol/l (3.5-5.1); SGOT/AST 30 u/l (17-59); SODIUM 140 mmol/l (137-146)
[2022-01-29 21:00] LABS: BILIRUBIN, TOTAL 0.2 mg/dL (0.0-1.4)
[2022-01-29 21:12] LABS: MYOGLOBIN 25 ng/mL (0 - 121)
[2022-01-29] MEDS ORDERED: NAPROXEN500 MG PO (21:25)
== END 2022-01-29 21:40 | disposition home or self-care (01) | DRG 313 ==
LOC: ED 19:58
PROVIDERS: Emergency Medicine
DX: R07.89 Other chest pain (principal)

== ENCOUNTER 2022-06-19 13:01 | Emergency (ER) | payer BC, OTHER ==
[~2022-06-19] VITALS: Ht 172.7 cm; Wt 77.0 kg
[~2022-06-19 13:01] MED LIST changes: +FENOFIBRATE145 MG PO
[2022-06-19 15:12] VITALS: BP 125/90
[2022-06-19 15:31] VITALS: BP 115/70
[2022-06-19 16:00] VITALS: BP 111/70
[2022-06-19 16:30] VITALS: BP 117/75
[2022-06-19 17:00] VITALS: BP 116/72
[2022-06-19 17:30] VITALS: BP 119/72
== END 2022-06-19 17:35 | disposition home or self-care (01) | DRG 605 ==
LOC: ED 13:01
DX: S00.81XA Abrasion of other part of head, initial encounter (principal); E78.00 Pure hypercholesterolemia, unspecified; W22.09XA Striking against other stationary object, initial encounter

== ENCOUNTER 2022-08-12 19:35 | Emergency (ER) | payer BC, OTHER ==
[~2022-08-12] VITALS: Ht 172.7 cm; Wt 80.0 kg
[2022-08-12 20:05] VITALS: BP 122/82
[2022-08-12 20:15] VITALS: BP 104/82
[2022-08-12 20:31] VITALS: BP 116/79
[2022-08-12 20:46] VITALS: BP 115/75
[2022-08-12 20:47] LABS: BASO% 0.4 % (0-3); EOS% 2.7 % (0-8); HEMATOCRIT 41.2 % (39.0-50.0); HEMOGLOBIN 13.7 g/dl (14.0-18.0); IMMATURE GRANULOCYTES 0.2 % (0.0-5.0); LYMPH% 30.7 % (15-41); MEAN CELL VOLUME 85.1 fL CALC (80.0-100.0); MEAN CORPUSCULAR HGB 28.3 pG CALC (26.0-32.0); MEAN CORPUSCULAR HGB CONC 33.3 g/dL CAL (32.0-36.0); MONO% 6.9 % (2-13); NEUT# 5.75 thou/uL (1.82-7.42); NEUT% 59.1 % (42-76); RED BLOOD COUNT 4.84 mill/uL (4.70-6.10)
[2022-08-12 20:58] LABS: ALBUMIN 4.6 g/dL (3.2-5.0); ALKALINE PHOSPHATASE 61 u/l (38-126); BUN 17 mg/dL (9-20); BUN/CREATININE RATIO 16 (12-20 (CALC)); CARBON DIOXIDE 23 mmol/l (22-30); CHLORIDE 108 mmol/l (95-108); GFR FOR AFR.AMER. > 60 ML/MIN (>=60 (CALC)); GFR OTHER RACES > 60 ML/MIN (>=60 (CALC)); SGOT/AST 34 u/l (17-59); SODIUM 141 mmol/l (137-146); TOTAL PROTEIN 7.8 g/dL (6.3-8.2)
[2022-08-12 21:00] VITALS: BP 118/74
[2022-08-12 21:04] LABS: ANION GAP 14 (6-22 (CALC)); BILIRUBIN, TOTAL 0.3 mg/dL (0.2-1.3); POTASSIUM 3.5 mmol/l (3.5-5.1)
[2022-08-12 21:18] LABS: URINE BILIRUBIN - DIPSTICK NEGATIVE (NEGATIVE); URINE BLOOD DIPSTICK SMALL (NEGATIVE); URINE COLOR YELLOW; URINE GLUCOSE - DIPSTICK NEGATIVE (NEGATIVE); URINE KETONE NEGATIVE (NEGATIVE); URINE LEUK ESTERASE TRACE (NEGATIVE); URINE PROTEIN - DIPSTICK NEGATIVE (NEG-TRACE); URINE SPECIFIC GRAVITY >=1.030; URINE UROBILINOGEN - DIPSTICK 0.2 E.U./dL (0.2)
[2022-08-12 21:19] LABS: URINE NITRITE - DIPSTICK NEGATIVE (Negative)
[2022-08-12 21:27] LABS: URINE WBC 0-2 WBC/hpf (0-5)
[2022-08-12 23:50] VITALS: BP 116/63
[2022-08-13] MEDS ORDERED: NAPROXEN500 MG PO (00:32)
== END 2022-08-13 00:38 | disposition home or self-care (01) | DRG 313 ==
LOC: ED 19:35
PROVIDERS: Emergency Medicine
DX: R07.89 Other chest pain (principal); Z20.822 Contact with and (suspected) exposure to COVID-19

== ENCOUNTER 2022-10-16 09:57 | Emergency (ER) | payer BC, OTHER ==
[~2022-10-16] VITALS: Ht 172.7 cm; Wt 81.6 kg
[2022-10-16 10:06] VITALS: BP 121/80
[2022-10-16] MEDS ORDERED: DULOXETINE HCL20 MG (10:08)
[2022-10-16] MEDS ORDERED: FENOFIBRATE160 MG PO (10:09)
[2022-10-16] MEDS ORDERED: COZAAR25 MG PO (10:10)
[2022-10-16 10:30] VITALS: BP 115/81
[2022-10-16 11:00] VITALS: BP 110/74
[2022-10-16 11:23] VITALS: BP 110/74
[2022-10-16] MEDS ORDERED: [UNRECOGNIZED DRUG - CODE] TOP (11:29)
== END 2022-10-16 11:35 | disposition home or self-care (01) | DRG 607 ==
LOC: ED 09:57
DX: B35.3 Tinea pedis (principal)

== ENCOUNTER 2022-10-24 22:15 | Emergency (ER) | payer BC, OTHER ==
[~2022-10-24] VITALS: Ht 172.7 cm; Wt 80.0 kg
[~2022-10-24 22:15] MED LIST changes: +COZAAR25 MG PO; +DULOXETINE HCL20 MG; +FENOFIBRATE160 MG PO; +[UNRECOGNIZED DRUG - CODE] TOP
[2022-10-24 23:00] VITALS: BP 127/82
[2022-10-24 23:30] VITALS: BP 124/79
[2022-10-24 23:36] LABS: BASO% 0.6 % (0-3); EOS% 1.5 % (0-8); HEMATOCRIT 41.5 % (39.0-50.0); HEMOGLOBIN 13.8 g/dl (14.0-18.0); IMMATURE GRANULOCYTES 0.1 % (0.0-5.0); LYMPH% 30.8 % (15-41); MEAN CELL VOLUME 85.9 fL CALC (80.0-100.0); MEAN CORPUSCULAR HGB 28.6 pG CALC (26.0-32.0); MEAN CORPUSCULAR HGB CONC 33.3 g/dL CAL (32.0-36.0); MONO% 5.5 % (2-13); NEUT# 5.28 thou/uL (1.82-7.42); NEUT% 61.5 % (42-76); RED BLOOD COUNT 4.83 mill/uL (4.70-6.10); RED CELL DISTRI WIDTH 13.3 % (11.5-15.5)
[2022-10-24 23:45] VITALS: BP 125/81
[2022-10-24 23:49] LABS: ALBUMIN 4.4 g/dL (3.2-5.0); ALKALINE PHOSPHATASE 65 u/l (38-126); ANION GAP 13 (6-22 (CALC)); BILIRUBIN, TOTAL 0.4 mg/dL (0.2-1.3); BUN 21 mg/dL (9-20); BUN/CREATININE RATIO 19 (12-20 (CALC)); CARBON DIOXIDE 25 mmol/l (22-30); CHLORIDE 107 mmol/l (95-108); CREATININE 1.1 mg/dL (0.7-1.3); GFR FOR AFR.AMER. > 60 ML/MIN (>=60 (CALC)); GFR OTHER RACES > 60 ML/MIN (>=60 (CALC)); POTASSIUM 3.6 mmol/l (3.5-5.1); SGOT/AST 29 u/l (17-59); SODIUM 141 mmol/l (137-146); TOTAL PROTEIN 7.5 g/dL (6.3-8.2)
[2022-10-25] VITALS (8 sets, daily range): BP systolic 101–132; BP diastolic 78–92
[2022-10-25] MEDS ORDERED: BACTRIM DS1 TAB PO (00:35)
[2022-10-25] MEDS ORDERED: CEPHALEXIN500 MG PO (00:35)
== END 2022-10-25 01:38 | disposition home or self-care (01) | DRG 603 ==
LOC: ED 22:15
PROVIDERS: Emergency Medicine
DX: L03.115 Cellulitis of right lower limb (principal)

== ENCOUNTER 2023-03-16 18:30 | Emergency (ER) | payer BC, OTHER ==
[~2023-03-16] VITALS: Ht 172.7 cm; Wt 79.3 kg
[~2023-03-16 18:30] MED LIST changes: +CEPHALEXIN500 MG PO
[2023-03-16] MEDS ORDERED: AMOXICILLIN500 MG PO (20:01)
[2023-03-16] MEDS ORDERED: ERYTHROMYCIN O3.5 GM OS (20:01)
[2023-03-16 20:34] VITALS: BP 122/83
== END 2023-03-16 20:43 | disposition home or self-care (01) | DRG 125 ==
LOC: ED 18:30
DX: S05.02XA Injury of conjunctiva and corneal abrasion without foreign body, left eye, initial encounter (principal); H00.034 Abscess of left upper eyelid; X58.XXXA Exposure to other specified factors, initial encounter

== ENCOUNTER 2023-03-19 10:45 | Emergency (ER) | payer BC, OTHER ==
[2023-03-19] VITALS (9 sets, daily range): BP systolic 106–136; BP diastolic 72–87
[~2023-03-19] VITALS: Ht 172.7 cm; Wt 80.0 kg
[~2023-03-19 10:45] MED LIST changes: +ERYTHROMYCIN O3.5 GM OS
[2023-03-19] MEDS ORDERED: ROSUVASTATIN CA40 MG (11:32)
[2023-03-19] MEDS ORDERED: GABAPENTIN100 MG PO (11:33)
[2023-03-19] MEDS ORDERED: DULOXETINE HCL20 MG (11:33)
== END 2023-03-19 14:36 | DRG 122 ==
LOC: ED 10:45
DX: H16.002 Unspecified corneal ulcer, left eye (principal); S05.02XA Injury of conjunctiva and corneal abrasion without foreign body, left eye, initial encounter; X58.XXXA Exposure to other specified factors, initial encounter

== ENCOUNTER 2023-11-21 14:40 | Emergency (ER) | payer BC ==
[~2023-11-21] VITALS: Ht 172.7 cm; Wt 81.0 kg
[~2023-11-21 14:40] MED LIST changes: +MOTRIN800 MG PO; +VENTOLIN HFA108 MCG IN
[2023-11-21 15:04] VITALS: BP 116/82
[2023-11-21 15:30] VITALS: BP 104/74
[2023-11-21 16:00] VITALS: BP 100/68
[2023-11-21 16:00] LABS: BASO% 0.7 % (0-3); EOS% 2.2 % (0-8); HEMATOCRIT 40.2 % (39.0-50.0); HEMOGLOBIN 13.1 g/dl (14.0-18.0); IMMATURE GRANULOCYTES 0.1 % (0.0-5.0); LYMPH% 25.6 % (15-41); MEAN CELL VOLUME 86.1 fL CALC (80.0-100.0); MEAN CORPUSCULAR HGB 28.1 pG CALC (26.0-32.0); MEAN CORPUSCULAR HGB CONC 32.6 g/dL CAL (32.0-36.0); MONO% 7.6 % (2-13); NEUT# 4.6 thou/uL (1.82-7.42); NEUT% 63.8 % (42-76); RED BLOOD COUNT 4.67 mill/uL (4.70-6.10); RED CELL DISTRI WIDTH 13.7 % (11.5-15.5)
[2023-11-21 16:04] LABS: ALBUMIN 4.1 g/dL (3.2-5.0); ALKALINE PHOSPHATASE 62 u/l (38-126); ANION GAP 7 (6-22 (CALC)); BILIRUBIN, TOTAL 0.5 mg/dL (0.2-1.3); BUN 14 mg/dL (9-20); BUN/CREATININE RATIO 14 (12-20 (CALC)); CARBON DIOXIDE 26 mmol/l (22-30); CHLORIDE 112 mmol/l (95-108); ESTIMATED GFR 99 ML/MIN (>=90 (CALC)); POTASSIUM 3.9 mmol/l (3.5-5.1); SGOT/AST 30 u/l (17-59); SODIUM 141 mmol/l (137-146); TOTAL PROTEIN 7.2 g/dL (6.3-8.2)
[2023-11-21] MEDS ORDERED: NAPROXEN375 MG PO (16:20)
[2023-11-21 16:30] VITALS: BP 112/75
== END 2023-11-21 16:50 | disposition home or self-care (01) | DRG 206 ==
LOC: ED 14:40
PROVIDERS: Family Medicine
DX: M94.0 Chondrocostal junction syndrome [Tietze] (principal); E78.5 Hyperlipidemia, unspecified